=== PATIENT | female | born 1990 | race Caucasian/White ===

== ENCOUNTER 2019-02-15 23:28 | Emergency (ER) | payer MEDICAID ==
[~2019-02-15] VITALS: Ht 162.2 cm; Wt 50.0 kg
[2019-02-15] MEDS ORDERED: LIDOCAINE 2% VISCOUS 15 ML UDC PO ONE (23:45)
[2019-02-15] MEDS ORDERED: ANTACID SUSP 30 ML UDC (MYLANTA) PO ONE (23:45)
--- NOTE | 2019-02-15 23:56 | ED Chest Pain ---
General Stated Complaint: CHEST PAIN Source: patient Exam Limitations: no limitations History of Present Illness Date Seen by Provider: Feb 15, 2019 Time Seen by Provider: 23:41 Initial Comments Here with report of central chest discomfort that radiates to her back. Onset while sleeping. States it woke her up and she has significant pain centrally. 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 She is only on one medicine for improved ovulation for . Denies breathing problems.States she's had reflux problems in the past but this is different. Timing/Duration: 1/2 hour, constant Severity/Quality: moderate Location: central Radiation: back Prior CP/Workup: no prior chest pain, no prior cardiac workup Modifying Factors: improves with rest ASA po REVIEWER SALES: No NTG SL REVIEWER SALES: No Associated Symptoms: abdominal pain (epigastric) Allergies and Home Medications Allergies Coded Allergies: iodine (Verified Allergy, Unknown, 02/15/19) medroxyprogesterone (Verified Allergy, Unknown, 02/15/19) Patient Home Medication List Home Medication List Reviewed: Yes Review of Systems Review of Systems Constitutional: see HPI; No chills, No fever EENTM: No Symptoms Reported Respiratory: No Symptoms Reported Cardiovascular: See HPI, Chest Pain; Denies Lightheadedness Gastrointestinal: Abdominal Pain (epigastric); Denies Nausea, Denies Vomiting Genitourinary: No Symptoms Reported Musculoskeletal: no symptoms reported Skin: no symptoms reported Psychiatric/Neurological: Anxiety; Denies Weakness Past Jxuznma-Hzfrhy-[id number] Hx Past Med/Social Hx: Reviewed Nursing Past Med/Soc Hx Patient Social History Alcohol Use: Denies Use Recreational Drug Use: No Smoking Status: Never a Smoker Recent Foreign Travel: No Contact w/Someone Who Travel: No Past Medical History Surgeries: Yes Respiratory: No Cardiac: No Neurological: No Musculoskeletal: Yes Scoliosis Psychosocial: Yes Anxiety Family Medical History Reviewed Nursing Family Hx No Pertinent Family Hx Physical Exam Vital Signs Vital Signs - First Documented 02/15/19 23:39 Temp 36.8 Pulse 91 Resp 20 B/P (MAP) 124/81 (95) Pulse Ox 100 O2 Delivery Room Air Capillary Refill : Height, Weight, BMI Height: '" Weight: lbs. oz. kg; BMI Method: General Appearance: WD/WN, Anxious Neck: Non Tender, Supple Respiratory: Lungs Clear, Normal Breath Sounds Cardiovascular: Regular Rate, Rhythm, No Murmur, Normal Peripheral Pulses Gastrointestinal: Non Tender, Soft Extremity: Normal Range of Motion, Non Tender, No Calf Tenderness Neurologic/Psychiatric: Alert, Oriented x3 Skin: Normal Color, Warm/Dry Progress/Results/Core Measures Results/Orders Lab Results Laboratory Tests Test 02/15/19 23:55 Range/Units White Blood Count 5.6 4.3-11.0 10^3/uL Red Blood Count 4.16 L 4.35-5.85 10^6/uL Hemoglobin 11.2 L 11.5-16.0 G/DL Hematocrit 34 L 35-52 % Mean Corpuscular Volume 82 80-99 FL Mean Corpuscular Hemoglobin 27 25-34 PG Mean Corpuscular Hemoglobin Concent 33 32-36 G/DL Red Cell Distribution Width 13.2 10.0-14.5 % Platelet Count 241 130-400 10^3/uL Mean Platelet Volume 9.2 7.4-10.4 FL Neutrophils (%) (Auto) 59 42-75 % Lymphocytes (%) (Auto) 30 12-44 % Monocytes (%) (Auto) 9 0-12 % Eosinophils (%) (Auto) 1 0-10 % Basophils (%) (Auto) 0 0-10 % Neutrophils # (Auto) 3.3 1.8-7.8 X 10^3 Lymphocytes # (Auto) 1.7 1.0-4.0 X 10^3 Monocytes # (Auto) 0.5 0.0-1.0 X 10^3 Eosinophils # (Auto) 0.1 0.0-0.3 10^3/uL Basophils # (Auto) 0.0 0.0-0.1 10^3/uL Sodium Level 138 135-145 MMOL/L Potassium Level 3.3 L 3.6-5.0 MMOL/L Chloride Level 102 98-107 MMOL/L Carbon Dioxide Level 22 21-32 MMOL/L Anion Gap 14 5-14 MMOL/L Blood Urea Nitrogen 14 7-18 MG/DL Creatinine 0.63 0.60-1.30 MG/DL Estimat Glomerular Filtration Rate > 60 BUN/Creatinine Ratio 22 Glucose Level 118 H 70-105 MG/DL Calcium Level 9.4 8.5-10.1 MG/DL Corrected Calcium 8.5-10.1 MG/DL Total Bilirubin 0.6 0.1-1.0 MG/DL Aspartate Amino Transf (AST/SGOT) 20 5-34 U/L Alanine Aminotransferase (ALT/SGPT) 13 0-55 U/L Alkaline Phosphatase 47 40-136 U/L Total Protein 7.6 6.4-8.2 GM/DL Albumin 4.6 H 3.2-4.5 GM/DL Lipase 20 8-78 U/L My Orders Orders - SEDRICK SANTACRUZ MD Lidocaine 2% Viscous 15 Ml (Xylocaine Vi (02/15/19 23:45) Antacid Suspension (Mylanta Suspension (02/15/19 23:45) Cbc With Automated Diff (02/15/19 23:44) Comprehensive Metabolic Panel (02/15/19 23:44) Lipase (02/15/19 23:44) Ed Iv/Invasive Line Start (02/15/19 23:44) Ekg Tracing (02/15/19 23:44) Urine Bedside (02/16/19 00:07) Medications Given in ED Current Medications Medications Dose Ordered Sig/Soila Route Start Time Stop Time Status Last Admin Dose Admin Al Hydrox/Mg Hydrox/Simethicone 30 ml ONCE ONCE PO 02/15/19 23:45 02/15/19 23:47 DC 02/16/19 00:03 30 ML Lidocaine HCl 15 ml ONCE ONCE PO 02/15/19 23:45 02/15/19 23:47 DC 02/16/19 00:03 15 ML Vital Signs/I&O 02/15/19 23:39 Temp 36.8 Pulse 91 Resp 20 B/P (MAP) 124/81 (95) Pulse Ox 100 O2 Delivery Room Air Progress Progress Note : Progress Note Seen and evaluated. IV, labs, ECG, GI cocktail ordered. Monitor patient. 0034: Patient completely pain-free and states that she believes it this is more related to her anxiety and asking if she can have something for that. We will give go pack of Vistaril that she can take when she gets home. I will give her prescription for that as well. Discharged home with return precautions. Patient verbalize understanding instructions and agreement with plan. Departure Impression Primary Impression: Chest pain Qualified Codes: R07.9 - Chest pain, unspecified Additional Impression: Anxiety Disposition: 01 HOME, SELF-CARE Condition: Improved Departure-Patient Inst. Decision time for Depature: 00:38 Referrals: JESSIE MARTINI MD (PCP) Primary Care Physician Patient Instructions: Chest Pain (DC) Add. Discharge Instructions: Take medications as directed. Follow-up with your doctor in 1-2 days for recheck and further evaluation. Return for worse pain, weakness, breathing problems or other concerns as needed. Scripts Hydroxyzine Pamoate (Hydroxyzine Pamoate) 25 Mg Capsule 25 MG PO Q6H PRN for ANXIETY, #20 CAP 0 Refills Prov: SEDRICK SANTACRUZ MD 02/16/19 SEDRICK SANTACRUZ MD Feb 15, 2019 23:56 POS
[2019-02-16 00:02] LABS: HEMATOCRIT 34 % (35-52); HEMOGLOBIN 11.2 G/DL (11.5-16.0); MEAN CORPUSCULAR HEMOGLOBIN 27 PG (25-34); MEAN CORPUSCULAR HGB CONC 33 G/DL (32-36); MEAN CORPUSCULAR VOLUME 82 FL (80-99); PLATELET COUNT 241 10^3/uL (130-400); RED CELL DISTRIBUTION WIDTH 13.2 % (10.0-14.5); WHITE BLOOD COUNT 5.6 10^3/uL (4.3-11.0)
[2019-02-16 00:03] LABS: BASOPHILS % (AUTO) 0 % (0-10); EOSINOPHILS # (AUTO) 0.1 10^3/uL (0.0-0.3); EOSINOPHILS % (AUTO) 1 % (0-10); LYMPHOCYTES # (AUTO) 1.7 X 10^3 (1.0-4.0); LYMPHOCYTES % (AUTO) 30 % (12-44); MEAN PLATELET VOLUME 9.2 FL (7.4-10.4); MONOCYTES # (AUTO) 0.5 X 10^3 (0.0-1.0); MONOCYTES % (AUTO) 9 % (0-12); NEUTROPHILS # (AUTO) 3.3 X 10^3 (1.8-7.8); NEUTROPHILS % (AUTO) 59 % (42-75)
[2019-02-16 00:22] LABS: ALKALINE PHOSPHATASE 47 U/L (40-136); BILIRUBIN,TOTAL 0.6 MG/DL (0.1-1.0); BUN/CREATININE RATIO 22; CALCIUM 9.4 MG/DL (8.5-10.1); CARBON DIOXIDE 22 MMOL/L (21-32); CHLORIDE 102 MMOL/L (98-107); CREATININE SERUM 0.63 MG/DL (0.60-1.30); GFR ESTIMATED > 60; GLUCOSE 118 MG/DL (70-105); POTASSIUM 3.3 MMOL/L (3.6-5.0); SODIUM 138 MMOL/L (135-145)
[2019-02-16 00:23] LABS: ALANINE AMINOTRANSFERASE 13 U/L (0-55); ALBUMIN 4.6 GM/DL (3.2-4.5); LIPASE 20 U/L (8-78); TOTAL PROTEIN 7.6 GM/DL (6.4-8.2)
[2019-02-16] MEDS ORDERED: RX-HYDROXYZINE PAMOATE 25 MG CAP #4 PO STA (00:33)
[2019-02-16] MEDS ORDERED: HYDR-3781 PO (00:40)
[2019-02-16 00:42] VITALS: BP 100/97
== END 2019-02-16 00:42 | disposition home or self-care (01) ==
LOC: EDUNIT# 23:28 → ER FS 23:34
DX: R07.9 Chest pain, unspecified (principal); F41.9 Anxiety disorder, unspecified; Z88.8 Allergy status to other drugs, medicaments and biological substances
CPT/HCPCS: 36415; 80053; 83690; 84703; 85025; 93005